=== PATIENT | male | born 1965 | race Caucasian/White ===

== ENCOUNTER → 2024-07-13 | Outpatient (CLI) | payer OTHER ==
[2024-07-13 14:52] LABS: HCT 45.9 % (39.6-50.0); HGB 15.7 g/dL (13.0-17.0); MCH 32.4 pg (27.0-32.0); MCHC 34.2 g/dL (32.0-37.0); MCV 94.6 FL (80.0-97.0); Mean Platelet Volume 11.8 FL (9.5-12.2); NRBC Per 100 WBC 0 X 10*3/uL (0.00-0.01); Platelet Count 153 X 10*3/uL (140-440); RBC 4.85 X 10*6/uL (4.40-5.60); RDW 11.9 % (11.5-14.5); WBC 5.65 X 10*3/uL (4.50-10.00)
[2024-07-13 14:53] LABS: Basophils # (A) 0.05 X 10*3/uL (0.00-0.10); Basophils % (A) 0.9 %; Eosinophils % (A) 1.8 %; Lymphocytes # (A) 1.32 X 10*3/uL (0.90-5.00); Lymphocytes % (A) 23.4 %; Monocytes # (A) 0.67 X 10*3/uL (0.20-1.00); Monocytes % (A) 11.9 %; Neutrophils # (A) 3.49 X 10*3/uL (1.80-7.70); Neutrophils % (A) 61.6 %
== END | disposition home or self-care (01) ==
LOC: LABPAT 07:51
PROVIDERS: ATTEND Surgery
DX: Z01.818 Encounter for other preprocedural examination (principal); K40.90 Unilateral inguinal hernia, without obstruction or gangrene, not specified as recurrent
CPT/HCPCS: 85025; 86850; 86900; 86901; 93005

== ENCOUNTER → 2024-07-16 | Day surgery (SDC) | payer OTHER ==
[2024-07-14 11:03] VITALS: BMI 33.5
[~2024-07-16] MED LIST: ACETAMINOPHEN TAB 325 MG TAB PO SCH; GLYCOPYRROLATE 0.2 MG/ML 2 ML VIAL ONE; HYDROmorphone (PF) 1 MG/ML ONE; HYDROmorphone 0.5 MG/0.5 ML SYRINGE IVP PRN; IBUPROFEN 600 MG TAB PO SCH; KETOROLAC 15 MG/ML 1 ML VIAL ONE; LIDOCAINE 1% INJ 10MG/ML (20 ML MDV) ONE; MIDAZOLAM 2 MG/2 ML VIAL IV PRN; MIDAZOLAM 2 MG/2 ML VIAL ONE; NEOSTIGMINE 1 MG/ML 10 ML VIAL ONE; PROPOFOL 10 MG/ML 20 ML VIAL IV ONE; ROCURONIUM 10 MG/ML (5 ML VIAL) IV ONE; SCOPOLAMINE 1 MG/72 HR PATCH TRANSDERM ONE; SUCCINYLCHOLINE CHLORIDE 200 MG/10 ML VIAL IV ONE; ePHEDrine 50 MG/ML 1 ML VIAL ONE; fentaNYL (PF) 50 MCG/ML 2 ML AMP ONE
[2024-07-16] MEDS: IV FLUID CONTINUATION 1,000 ML IV ONE (11:28)
[2024-07-16] MEDS: ACETAMINOPHEN TAB 500 MG TAB PO PRN (11:50)
[2024-07-16] MEDS: HEPARIN SODIUM,PORCINE 5,000 UNIT/ML 1 ML VIAL SQ PRN (11:50)
[2024-07-16] MEDS: DEXAMETHASONE SOD PHOSPHATE 4 MG/ML 1 ML VIAL IV ONE (11:50)
[2024-07-16] MEDS: ONDANSETRON 4 MG/2 ML VIAL IVP ONE (11:50)
[2024-07-16] MEDS: TAMSULOSIN 0.4 MG CAP.ER.24H PO STA (11:53)
[2024-07-16] MEDS: LACTATED RINGERS 1,000 ML IV SCH (11:54)
--- NOTE | 2024-07-16 12:23 | P.GSHP ---
History of Present Illness H&P Date: 07/16/24 Chief Complaint: Right inguinal hernia 58-year-old male here for elective repair right inguinal hernia. Refer to recent history and physical. Patient with enlarging bulge right groin. Mild soreness at times. Past Medical History Past Medical History: Hypertension History of Any Multi-Drug Resistant Organisms: None Reported Past Surgical History: No Surgical Hx Reported Additional Past Surgical History / Comment(s): Left renal artery repair at 22 months og age, angiogram, colonoscopy. Past Anesthesia/Blood Transfusion Reactions: No Reported Reaction, Motion Sickness Smoking Status: Never smoker - Past Family History Mother Family Medical History: No Reported History Medications and Allergies Home Medications Medication Instructions Recorded Confirmed Type Acetaminophen [Tylenol Arthritis] 650 mg PO DIRECTED PRN 07/14/24 07/16/24 History Losartan Potassium 100 mg PO QAM 07/14/24 07/16/24 History Naproxen Sodium [Aleve] 220 mg PO BID 07/14/24 07/14/24 History amLODIPine BESYLATE 5 mg PO QAM 07/14/24 07/16/24 History Allergies Allergy/AdvReac Type Severity Reaction Status Date / Time alatrofloxacin mesylate AdvReac Unknown Verified 07/16/24 11:23 [From Trovan] trovafloxacin mesylate AdvReac Unknown Verified 07/16/24 11:23 [From Trovan] Surgical - Exam Vital Signs Temp Pulse Resp BP Pulse Ox 98.1 F 83 16 145/86 96 07/16/24 11:33 07/16/24 11:33 07/16/24 11:33 07/16/24 11:33 07/16/24 11:33 Physical exam: General: Well-developed, well-nourished HEENT: Normocephalic, sclerae nonicteric Abdomen: Nontender, nondistended, scar left upper quadrant, reducible right inguinal hernia, no palpable hernia on left Extremities: No edema Neuro: Alert and oriented Assessment and Plan (1) Right inguinal hernia Narrative/Plan: 58-year-old male with right inguinal hernia. Will proceed with laparoscopic da Amy assisted repair right inguinal hernia with mesh, possible open, possible bilateral. Risks of bleeding, infection, recurrence, chronic pain, bladder and bowel injury, numbness, conversion to an open procedure, scarring, and anesthesia related complications were discussed. The correlation between hernia recurrence, obesity and smoking were reviewed in detail. The patient understands and wishes to proceed. Current Visit: Yes Status: Acute Code(s): K40.90 - UNIL INGUINAL HERNIA, W/O OBST OR GANGR, NOT SPCF RECUR OMED Code(s): 524287831
[2024-07-16] MEDS: ceFAZolin 3 GM in SODIUM CHLORIDE 0.9% 100 ML IVPB PRN (12:53)
[2024-07-16] MEDS: BUPIVACAINE (PF) 0.25% 30 ML VIAL SQ ONE (13:10)
[2024-07-16] MEDS: LACTATED RINGERS 1,000 ML IV ONE (13:45)
--- NOTE | 2024-07-16 14:39 | P.OP ---
Date of Procedure: 07/16/24 Procedure(s) Performed: PREOPERATIVE DIAGNOSIS: Right inguinal hernia POSTOPERATIVE DIAGNOSIS: Large right indirect inguinal hernia PROCEDURE: Laparoscopic da Amy assisted repair right inguinal hernia with mesh SURGEON: Dr. Aparicio ANESTHESIA: General EBL: 10 cc OPERATIVE PROCEDURE DETAILS: Patient was placed in the operating table in the supine position. The patient was placed under general anesthesia. The abdomen was prepped and draped in usual sterile fashion. A small curvilinear supraumbilical incision was made. The fascia was retracted anteriorly with [place] forceps. The Veress needle was inserted. The saline drop test was normal. Insufflation took place to 15 mmHg. An 8 mm trocar was placed into the peritoneal cavity. 2 additional 8 mm trochars were placed in the right upper quadrant and left upper quadrant under visualization. The robotic arms were then brought in and docked into place. The fenestrated bipolar was used in the left arm and the laparoscopic melva was utilized in the right arm. A 30 8 mm scope was used in the up position. The peritoneal cavity was inspected. Patient had a very large right indirect inguinal hernia present. The peritoneum was incised in a horizontal fashion cephalad to the internal inguinal ring. Following that careful dissection of the preperitoneal space took place. This took place using both electrocautery, sharp dissection but primarily blunt dissection. Visualization of the pubic tubercle and Tanner's ligament took place medially. Full dissection took place laterally as well. The hernia sac was fully dissected. There was no visible cord lipoma penetrating through the internal inguinal ring. Once we had adequate space the [id number] Progrip mesh was advanced into the preperitoneal space and flattened out appropriately to cover all potential hernia sites. The mesh was sutured medially to the folding edge of Tanner's ligament. This was performed using a absorbable 3-0 V-Loc suture. The peritoneal defect was then closed using a absorbable 2-0 VLok suture. A smaller defect in the peritoneum was closed using a short running 3-0 absorbable V-Loc suture as well. The hernia sac was incorporated into the peritoneal closure to help prevent future recurrence. The pneumoperitoneum was then evacuated. The skin of all 3 sites was closed using a 4-0 Monocryl stitch. Skin glue was then applied. TYPE OF MESH USED: 16 cm ProGrip LOCATION OF MESH: Preperitoneal [place] FIXATION: Absorbable 3 oh V-Loc PREOPERATIVE DISCUSSION ON SMOKING CESSASTION: Yes PREOPERATIVE DISCUSSION ON MORBID OBESITY: Yes PREOPERATIVE DISCUSSION ON APPROPRIATE USE OF NARCOTIC USE: Yes PREOPERATIVE EDUCATION: Multi Modal, Smoking Cessation and Weight Loss with BMI over 35. DISPOSITION: Stable to recovery room
[2024-07-16 14:52] VITALS: TEMP 97.7
[2024-07-16 16:27] VITALS: PULSE 67; RESP 18
[2024-07-16 16:51] VITALS: BP 118/75
== END ==
LOC: OR 10:48
PROVIDERS: ATTEND Surgery
DX: K40.90 Unilateral inguinal hernia, without obstruction or gangrene, not specified as recurrent (principal); I10 Essential (primary) hypertension; Z88.1 Allergy status to other antibiotic agents; Z79.899 Other long term (current) drug therapy
CPT/HCPCS: 49650; S2900